=== PATIENT | female | born 1990 | race Caucasian/White ===

== ENCOUNTER 2019-02-02 15:27 | Emergency (ER) | payer SELFPAY ==
--- NOTE | 2019-02-02 16:31 | ERPHSYRPT ---
- History of Present Illness Time Seen by Provider: 02/02/19 16:20 Source: patient Exam Limitations: no limitations Patient Subjective Stated Complaint: pt reports approx 1400 she stepped out of her van twisting her right ankle. reports swelling and pain with any pressure applied. Triage Nursing Assessment: pt is aox3, pupils perrl, afebrile, resps easy and non labored, radial pulse strong and equal, cap refill < 3 seconds, pt skin pink warm dry. slight swelling noted to the distal right ankle. ice pack in place at this time. Physician History: Right lateral ankle pain after stepping down and inverting her ankle. It occurred two hours prior to coming into the emergency department Method of Injury: twisted Occurred: hours ago (2) Quality: intermittent, sharpness, throbbing Severity of Pain-Max: severe Severity of Pain-Current: moderate Lower Extremities Pain: ankle: right Modifying Factors: Improves With: movement (worsens the pain with weight bearing ), rest (helps the pain ) Associated Symptoms: unable to bear weight, No dizzy, No fainted, No seizure, No snapping sensation, No popping sensation Allergies/Adverse Reactions: No Known Drug Allergies Allergy (Unverified 02/02/19 16:05) Hx Tetanus, Diphtheria Vaccination/Date Given: Yes (unk) Hx Influenza Vaccination/Date Given: No Hx Pneumococcal Vaccination/Date Given: No Immunizations Up to Date: Yes - Review of Systems Constitutional: No Fever, No Chills Eyes: No Symptoms Ears, Nose, & Throat: No Symptoms Respiratory: No Cough, No Dyspnea Cardiac: No Chest Pain, No Edema, No Syncope Abdominal/Gastrointestinal: No Abdominal Pain, No Nausea, No Vomiting Genitourinary Symptoms: No Flank Pain Musculoskeletal: No Back Pain, No Neck Pain Skin: No Rash Neurological: No Dizziness, No Focal Weakness, No Sensory Changes Psychological: No Symptoms Endocrine: No Symptoms All Other Systems: Reviewed and Negative - Past Medical History Pertinent Past Medical History: Yes Psycho-Social History: Anxiety, Depression - Past Surgical History Past Surgical History: Yes Other Surgical History: ears tubes as a child. 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 - Social History Smoking Status: Current every day smoker Drug Use: none Patient Lives Alone: No - Female History Hx Last Menstrual Period: 01/21/19 Hx Now: No - Nursing Vital Signs Nursing Vital Signs: Initial Vital Signs Temperature 98.1 F 02/02/19 15:56 Pulse Rate 70 02/02/19 15:56 Respiratory Rate 20 02/02/19 15:56 Blood Pressure 97/53 02/02/19 15:56 O2 Sat by Pulse Oximetry 99 02/02/19 15:56 Pain Scale Pain Intensity 6 - Physical Exam SpO2: 99 - Course Nursing assessment & vital signs reviewed: Yes - Radiology Exams Right Ankle X-ray Interpretation: Reviewed by me, No Fracture, Nml Alignment, Other ( lateral soft tissue swelling) Ordered Tests: Active Orders 24 hr Category Date Time Status Ciro Bandage Application -[facility] STAT Care 02/02/19 17:25 Ordered Splint STAT Care 02/02/19 17:26 Ordered ANKLE (3 VIEWS) Stat Exams 02/02/19 16:28 Taken - Progress Progress: unchanged Progress Note: 02/02/19 17:28 Patient had an CIRO and Air Cast Splint placed on the right ankle/lower extremity. Patient is neurovascularly intact after placement. Counseled pt/family regarding: diagnosis, need for follow-up, rad results - Departure Departure Disposition: Home Clinical Impression: Right ankle sprain Qualifiers: Encounter type: initial encounter Involved ligament of ankle: unspecified ligament Qualified Code(s): S93.401A - Sprain of unspecified ligament of right ankle, initial encounter Condition: Good Critical Care Time: No Referrals: HAYDER RAMIREZ NP [Primary Care Provider] - Follow Up with PCP/3 days Instructions: Ankle Sprain (DC) Prescriptions: Etodolac 400 mg [Lodine 400 mg] 400 mg PO BID PRN PRN #20 tablet PRN Reason: Pain
[2019-02-02 17:42] VITALS: BP 118/62; PULSE 80; O2SAT 98
--- NOTE | 2019-02-02 19:25 | XRAY ---
Indication: Pain following twisting injury. Comparison: None 3 views of the right ankle demonstrates anterior lateral soft tissue swelling. No other bony, articular, or soft tissue abnormalities.
== END 2019-02-02 17:51 | disposition home or self-care (01) ==
LOC: ED 15:27
DX: S93.401A Sprain of unspecified ligament of right ankle, initial encounter (principal); X50.1XXA Overexertion from prolonged static or awkward postures, initial encounter; Y93.9 Activity, unspecified
CPT/HCPCS: 73610; 99284

== ENCOUNTER 2022-01-31 13:50 | Emergency (ER) | payer BC ==
[2022-01-31 14:17] LABS: Absolute Neutrophil Ct (ANC) 6.49 x10^3/uL (1.4-6.9); Basophil (Absolute #) 0.05 x10^3/uL (0-0.4); Eosinophil % 4.2 % (0.00-5.0); Eosinophil (Absolute #) 0.37 x10^3/uL (0-0.5); Hematocrit 42.5 % (35-47); Hemoglobin 14.2 g/dL (12.0-16.0); Lymphocyte (Absolute #) 0.77 x10^3/uL (1.0-4.6); Lymphocytes % 8.7 % (24.0-44.0); Mean Cell Volume 91.6 fL (78-100); Mean Corpuscular Hemoglobin 30.6 pg (26-32); Mean Corpuscular Hgb Concent. 33.4 g/dL (32-36); Mean Platelet Volume 9.4 fL (7.5-11.0); Monocyte (Absolute #) 1.11 x10^3/uL (0.0-1.3); Monocytes % 12.6 % (0.0-12.0); Neutrophil % 73.6 % (36.0-66.0); Platelet Count 255 x10^3/uL (150-450); Red Blood Count 4.64 x10^6/uL (4.1-5.4); Red Cell Distribution Width 12.7 % (11.5-14.0); White Blood Count 8.8 x10^3/uL (4.0-10.5)
--- NOTE | 2022-01-31 14:22 | ERPHSYRPT ---
- History of Present Illness Time Seen by Provider: 01/31/22 14:20 Source: patient Exam Limitations: no limitations Patient Subjective Stated Complaint: Pt c/o of cough, body aches, vomiting due to cough, since October Triage Nursing Assessment: Pt was brought to the ER by another person, vitals wnl, rates overall pain as 3/10, coughing, body aches from coughing per pt, skin n/w/d, pulses normal, doesn't appear to be in any distress Physician History: Patient is 31-year-old female came to the emergency room with complaining of cough which she has since October, approximately since last 3 months. Patient started having flulike symptoms around in October and since then she has a cough. At that time she was tested for COVID but it was reported negative. She continues to have a cough body ache. She was given multiple rounds of steroid as well as antibiotic which makes her feel better for a while but then her cough usually comes back. She is complaining of cough which is very dry constant and due to that she is getting exhausted and unable to sleep. Timing/Duration: week(s), intermittent Cough Quality/Degree: moderate, dry cough Possible Cause: frequent episodes Associated Symptoms: denies symptoms Allergies/Adverse Reactions: No Known Drug Allergies Allergy (Unverified 01/31/22 14:11) Home Medications: Albuterol Sulfate [Albuterol Sulfate Hfa] 2 inh PO UD 01/31/22 [History] Metformin HCl 500 mg [Glucophage 500 MG] 500 mg PO DAILY 01/31/22 [ History] Symbicort 1 inh PO UD 01/31/22 [History] Vortioxetine Hydrobromide [Trintellix] 10 mg PO HS 01/31/22 [History] Hx Tetanus, Diphtheria Vaccination/Date Given: Yes (unk) Hx Influenza Vaccination/Date Given: No Hx Pneumococcal Vaccination/Date Given: No Travel Risk - International Travel Have you traveled outside of the country in past 3 weeks: No - Coronavirus Screening Are you exhibiting any of the following symptoms?: Yes Symptoms: Cough: New Onset, Shortness of Breath, Vomiting/Diarrhea, Headaches/Body Aches/Fatigue Close contact with a COVID-19 positive Pt in past 14-21 Days: No - Vaccine Status Have you recieved a Covid-19 vaccination: No - Review of Systems Constitutional: No Fever, No Chills Eyes: No Symptoms Ears, Nose, & Throat: No Symptoms Respiratory: Cough, No Dyspnea Cardiac: No Chest Pain, No Edema, No Syncope Abdominal/Gastrointestinal: No Abdominal Pain, No Nausea, No Vomiting, No Diarrhea Genitourinary Symptoms: No Dysuria Musculoskeletal: No Back Pain, No Neck Pain Skin: No Rash Neurological: No Dizziness, No Focal Weakness, No Sensory Changes Psychological: No Symptoms Endocrine: No Symptoms All Other Systems: Reviewed and Negative - Past Medical History Pertinent Past Medical History: Yes Psycho-Social History: Depression, Anxiety Female Reproductive Disorders: Other - Past Surgical History Past Surgical History: Yes Other Surgical History: ears tubes as a child. 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 - Social History Smoking Status: Current every day smoker Exposure to second hand smoke: Yes Drug Use: none Patient Lives Alone: No - Female History Hx Now: No - Nursing Vital Signs Nursing Vital Signs: Initial Vital Signs Temperature 98.3 F 01/31/22 13:55 Pulse Rate 92 H 01/31/22 13:55 Respiratory Rate 16 01/31/22 13:55 Blood Pressure 112/81 01/31/22 13:55 O2 Sat by Pulse Oximetry 97 01/31/22 13:55 Pain Scale Pain Intensity 3 - Physical Exam General Appearance: no apparent distress, alert Eye Exam: PERRL/EOMI, eyes nml inspection Ears, Nose, Throat Exam: normal ENT inspection, TMs normal, pharynx normal, moist mucous membranes Neck Exam: normal inspection, non-tender, supple, full range of motion Respiratory Exam: normal breath sounds, wheezing, No respiratory distress Cardiovascular Exam: regular rate/rhythm, normal heart sounds Gastrointestinal/Abdomen Exam: soft, No tenderness Back Exam: normal inspection, No CVA tenderness, No vertebral tenderness Extremity Exam: normal inspection, normal range of motion Neurologic Exam: alert, oriented x 3, cooperative, normal mood/affect, sensation nml, No motor deficits Skin Exam: normal color, warm, dry, No rash Lymphatic Exam: No adenopathy SpO2: 95 - Course Nursing assessment & vital signs reviewed: Yes - Radiology Exams Chest X-ray Interpretation: Reviewed by me, Negative Ordered Tests: Active Orders 24 hr Category Date Time Status CHEST 2 VIEWS (PA AND LAT) Stat Exams 01/31/22 14:21 Taken CBC W DIFF Stat Lab 01/31/22 14:10 Completed CMP Stat Lab 01/31/22 14:10 Completed Lab/Rad Data: Laboratory Result Diagrams 01/31/22 14:10 01/31/22 14:10 Laboratory Results 01/31/22 01/31/22 01/31/22 Range/Units 14:10 14:10 14:10 WBC 8.8 (4.0-10.5) x10^3/uL RBC 4.64 (4.1-5.4) x10^6/uL Hgb 14.2 (12.0-16.0) g/dL Hct 42.5 (35-47) % MCV 91.6 (78-100) fL MCH 30.6 (26-32) pg MCHC 33.4 (32-36) g/dL RDW 12.7 (11.5-14.0) % Plt Count 255 (150-450) x10^3/uL MPV 9.4 (7.5-11.0) fL Gran % 73.6 H (36.0-66.0) % Immature Gran % (Auto) 0.3 (0.00-0.4) % Nucleat RBC Rel Count 0.0 (0.00-0.1) % Eos # (Auto) 0.37 (0-0.5) x10^3/uL Immature Gran # (Auto) 0.03 (0.00-0.03) x10^3u/L Absolute Lymphs (auto) 0.77 L (1.0-4.6) x10^3/uL Absolute Monos (auto) 1.11 (0.0-1.3) x10^3/uL Absolute Nucleated RBC 0.00 (0.00-0.01) x10^3u/L Lymphocytes % 8.7 L (24.0-44.0) % Monocytes % 12.6 H (0.0-12.0) % Eosinophils % 4.2 (0.00-5.0) % Basophils % 0.6 (0.0-0.4) % Absolute Granulocytes 6.49 (1.4-6.9) x10^3/uL Basophils # 0.05 (0-0.4) x10^3/uL Sodium 140 (137-145) mmol/L Potassium 4.0 (3.5-5.1) mmol/L Chloride 104 (98-107) mmol/L Carbon Dioxide 28 (22-30) mmol/L Anion Gap 12.0 (5-15) MEQ/L BUN 4 L (7-17) mg/dL Creatinine 0.60 (0.52-1.04) mg/dL Estimated GFR > 60.0 ML/MIN Glucose 104 (74-106) mg/dL Calcium 9.5 (8.4-10.2) mg/dL Total Bilirubin 0.50 (0.2-1.3) mg/dL AST 19 (14-36) U/L ALT 25 (0-35) U/L Alkaline Phosphatase 76 (38-126) U/L Serum Total Protein 7.6 (6.3-8.2) g/dL Albumin 4.6 (3.5-5.0) g/dL Influenza Type A Ag NEGATIVE (NEGATIVE) Influenza Type B Ag NEGATIVE (NEGATIVE) RSV (PCR) NEGATIVE (Negative) SARS-CoV-2 (PCR) NEGATIVE (NEGATIVE) - Progress Progress: unchanged Air Movement: good Blood Culture(s) Obtained: No Antibiotics given: No Counseled pt/family regarding: lab results, diagnosis, need for follow-up, rad results - Departure Departure Disposition: Home Clinical Impression: Post-COVID chronic cough Condition: Stable Critical Care Time: No Referrals: HAYDER RAMIREZ [employer] [Primary Care Provider] - Follow up/PCP as directed Instructions: Cough, Adult (DC) Additional Instructions: Discharge/Care Plan LETHA ZACARIAS was seen on 01/31/22 in the Emergency Room. The patient was counseled regarding Diagnosis,Lab results, Imaging studies, need for follow up and when to return to the Emergency Room. Prescriptions given: Discharge Note I have spoken with the patient and/or caregivers. I have explained the patient's condition, diagnosis and treatment plan based on the information available to me at this time. I have answered the patient's and/or caregiver's questions and addressed any concerns. The patient and/or caregivers have as good understanding of the patient's diagnosis, condition and treatment plan as can be expected at this point. The vital signs have been stable. The patient's condition is stable and appropriate for discharge from the emergency department. The patient will pursue further outpatient evaluation with the primary care physician or other designated or consulting physician as outlined in the discharge instructions. The patient and/or caregivers are agreeable to this plan of care and follow-up instructions have been explained in detail. The patient and/or caregivers have received these instruction. The patient/and or caregivers are aware that any significant change in condition or worsening of symptoms should prompt an immediate return to this or the closest emergency department or call 911. LETHA ZACARIAS was seen on 01/31/22 n the Emergency Room. At that time you were treated for an emergent condition, during your visit Laboratory, Radiology and/or other procedures may have been ordered. It is very important that you follow-up with your Primary Care Physician HAYDER RAMIREZ NP within the next 24-48 hours to review your Emergency Room visit and the final results of testing that was ordered. Some test results such as Urine Cultures, Blood Cultures, and other cultures if ordered will not be finalized for 24-48 hours. If you do not have a Primary Care Provider please call the medical records department at [phone] ext [phone] to obtain a copy of your results or you may sign into our patient portal to obtain these results by visiting us @ [email or web address] and completing the following steps: 1. Click on the Patient Portal link 2. Click the Patient Self Enrollment Link to complete the enrollment form and entering your 3. Once the enrollment form is completed you will receive an email with a temporary ID and password at the email address you provided. 4. Next choose a user name and password. Your user name must be at least 4 characters long and your password must be at least 4 characters long. 5. Choose a security question from the list and provide your answer to the question. If you already have signed into the Health Portal you may access your Health Care Information 20/12 by the following steps: 1. Login to our website @ [email or web address] 2. Enter your original user name and password. FAQS The [facility] Portal is an online tool that contains your Lab Results, Radiology Reports, Visit History, Discharge Instructions and Health Summary Lab and Radiology Results will not be available for 72 hours on the portal. The Portal is a secure site, passwords are encryted and URLs are re-written so they cannot be copied and pasted. You and authorized family members are the only ones who can access your Portal. Also there is a timeout feature that protects your information if you leave the Portal page open. If you have technical difficulty please use the Contact Us link on the page this will allow you to submit any questions you have regarding the Portal or you may contact the Medical Record Department at [phone]. Prescriptions: Benzonatate 100 mg PO TID #90 cap Guaifenesin/Dextromethorphan [Mucinex Dm ER 1,200-60 mg Tab] 1 each PO BID #60 tablet
[2022-01-31 14:35] LABS: ALBUMIN 4.6 g/dL (3.5-5.0); ALKALINE PHOSPHATASE 76 U/L (38-126); BLOOD UREA NITROGEN 4 mg/dL (7-17); CHLORIDE 104 mmol/L (98-107); Calcium 9.5 mg/dL (8.4-10.2); Carbon Dioxide 28 mmol/L (22-30); EST GLOMERULAR FILTRATION RATE > 60.0 ML/MIN; Glucose 104 mg/dL (74-106); SGOT/AST 19 U/L (14-36); SGPT/ALT 25 U/L (0-35); SODIUM 140 mmol/L (137-145); Total Protein 7.6 g/dL (6.3-8.2)
[2022-01-31 14:53] LABS: INFLUENZA A NEGATIVE (NEGATIVE); INFLUENZA B NEGATIVE (NEGATIVE); RESPIRATORY SYNCTIAL VIRUS NEGATIVE (Negative); SARS-CoV-2 Xpert Express NEGATIVE (NEGATIVE)
[2022-01-31 15:37] VITALS: BP 117/84; PULSE 80; O2SAT 98
--- NOTE | 2022-01-31 21:39 | XRAY ---
Indication: Chronic cough. Comparison: None PA/lateral chest demonstrates normal heart, lungs, and bony thorax.
== END 2022-01-31 15:37 | disposition home or self-care (01) ==
LOC: ED 13:50
DX: R05.3 Chronic cough (principal); U09.9 Post COVID-19 condition, unspecified; M79.10 Myalgia, unspecified site; Z72.0 Tobacco use; Z79.899 Other long term (current) drug therapy; Z28.310 Unvaccinated for COVID-19
CPT/HCPCS: 0241U; 36415; 71046; 80053; 85025; 99283

== ENCOUNTER 2024-10-09 06:27 | Day surgery (SDC) | payer BC ==
[2024-10-09] MEDS ORDERED: Lactated Ringers 1,000 ML IV ONE (07:15)
[2024-10-09 07:16] LABS: HCG URINE TEST NEGATIVE (NEGATIVE)
[2024-10-09 07:30] VITALS: RESP 16
[2024-10-09] MEDS: CEFAZOLIN 2 GM/100 ML NaCl 2 GM/100 ML IVPB IV SCH (07:36)
[2024-10-09] MEDS ORDERED: CEFAZOLIN 2 GM/100 ML NaCl 2 GM/100 ML IVPB IV ONE (07:36)
[2024-10-09] MEDS: Lactated Ringers 1,000 ML IV SCH (07:36)
[2024-10-09] MEDS ORDERED: Sodium Chloride 0.9% 1000 ML 1,000 ML ONE (08:30)
[2024-10-09] MEDS ORDERED: propofoL IV ONE (08:50)
[2024-10-09] MEDS ORDERED: Zofran 4 MG/2 ML VIAL ONE (08:50)
[2024-10-09] MEDS ORDERED: TORAdol 30 mg Injection ONE (09:03)
[2024-10-09] MEDS ORDERED: SUBLIMAZE 100 MCG/2 ML ONE (09:25)
[2024-10-09 10:33] VITALS: BP 136/59; PULSE 82; O2SAT 96
[2024-10-09 10:40] VITALS: TEMP 98.6
--- NOTE | 2024-10-11 10:06 | OP ---
SURGERY DATE/TIME: 10/09/2024 [id number] PREOPERATIVE DIAGNOSIS: Abnormal uterine bleeding. POSTOPERATIVE DIAGNOSIS: Abnormal uterine bleeding. PROCEDURE: Hysteroscopy, dilatation and curettage, with endometrial ablation. SURGEON: Jass Cohn DO NURSE SPECIALIST: Coretta the traveling nurse. ANESTHESIA: General. ESTIMATED BLOOD LOSS: Minimal. COMPLICATIONS: None. DESCRIPTION OF PROCEDURE AND FINDINGS: The risks, benefit, indications, and alternatives of the procedure were reviewed with the patient prior to the procedure. Patient understood the risks of infection, bleeding, bowel injury, bladder injury, ureteral injury, uterine perforation, pelvic infection, thromboembolic disorder associated with this surgery and desires to have this surgery as a possible means to alleviate her current medical condition. At this point, the patient was taken to the operating room, given general sedation, placed in a dorsal lithotomy position, prepped and draped in the usual sterile fashion. A weighted speculum was then placed in the patient's vagina, and the anterior lip of the cervix was grasped with a single-tooth tenaculum. Endocervical dilators were advanced through the endocervical region as a means to dilate the cervix, and a 5 mm hysteroscope was then placed in through the endocervical region where visualization of the endometrial lining appeared to be within normal limits with no gross abnormalities that were noted. From this point, the hysteroscope was removed, and the NovaSure was then placed in toward the fundal region and retracted approximately 1 cm, and the machine was turned on for an ablative time of 1 minute and 4 seconds, with a length of 6 cm and a width of 4 cm, and was done so without complication. After complete ablation, the NovaSure was then removed from the uterine cavity, and all subsequent instruments were removed from the patient's pelvic region. At this point, the patient was then taken out of the dorsal lithotomy position, was taken out of anesthesia, and was then taken to the recovery room in stable condition. All instruments and laps were accounted for x2.
== END 2024-10-09 10:39 | disposition home or self-care (01) ==
LOC: SDC 06:27
PROVIDERS: ATTEND Obstetrics & Gynecology
DX: N93.9 Abnormal uterine and vaginal bleeding, unspecified (principal)
CPT/HCPCS: 58563; 81025; J0690; J1885; J2405; J2704; J3010